=== PATIENT | male | born 1985 | race Two or more races ===

== ENCOUNTER 2024-02-27 10:05 | Emergency (ER) | payer OTHER ==
[~2024-02-27] VITALS: Ht 177.8 cm; Wt 106.8 kg
[2024-02-27] MEDS ORDERED: BACDST PO (11:18)
[2024-02-27 11:20] VITALS: BP 54/92; PULSE 70; RESP 18; TEMP 98.3; O2SAT 99
== END 2024-02-27 11:24 | disposition home or self-care (01) ==
LOC: ER 10:05
DX: S01.81XA Laceration without foreign body of other part of head, initial encounter (principal); W01.0XXA Fall on same level from slipping, tripping and stumbling without subsequent striking against object, initial encounter; Y93.89 Activity, other specified; Y92.89 Other specified places as the place of occurrence of the external cause; Y99.8 Other external cause status
CPT/HCPCS: 70450